=== PATIENT | female | born 1970 | race Caucasian/White ===

== ENCOUNTER → 2020-07-13 | Outpatient (CLI) | payer BC ==
--- NOTE | 2020-07-14 02:39 | MR ---
EXAMINATION TYPE: MR brain wo con DATE OF EXAM: 07/13/2020 COMPARISON: None HISTORY: Vertigo, headaches, demyelinating disease. Multiplanar multiecho imaging of the brain was performed without contrast. Ventricles have normal size. There is no mass effect nor midline shift. There is no sign of intracran ial hemorrhage. Diffusion images show no evidence of an acute infarct. The brainstem is intact. There is no evidence of posterior fossa mass. Corpus callosum appears normal. Damon and white matter struct ures have fairly normal signal pattern. There is no evidence of cerebral edema. There is no evidence of orbital mass. Corpus callosum appears normal. Sella turcica appears normal. There is no evidence of any white matte r lesion. IMPRESSION: Normal exam. No evidence Of demyelinating disease. no posterior fossa abnormality.
== END | disposition home or self-care (01) ==
LOC: RADMRIMAIN 19:41
PROVIDERS: ATTEND Psychiatry & Neurology Neurology
DX: G37.9 Demyelinating disease of central nervous system, unspecified (principal); R42 Dizziness and giddiness; R51.9 Headache, unspecified
CPT/HCPCS: 70551